=== PATIENT | female | born 1950 | race Caucasian/White ===

== ENCOUNTER → 2023-09-24 08:40 | Outpatient (CLI) | payer MEDICARE, OTHER, SELFPAY ==
--- NOTE | 2023-09-24 08:46 | DI.CT.S_ITS ---
PROCEDURE: CT LE RT WO CON INDICATIONS: RT KNEE PAIN / R/O FRACTURE TECHNIQUE: Noncontrast 1-1.5 mm axial sections acquired from the mid-patella to the proximal tibia, with coronal and sagittal reformats. COMPARISON: [facility], MR, MR KNEE RIGHT WITHOUT CONTRAST, 09/15/2023, 7:23. [facility] [place], CR, XR KNEE 4+ VIEWS RIGHT, 08/25/2023, 9:50. FINDINGS: Image quality: Excellent. Bones: No acute osseous fracture or dislocation. Moderate joint space narrowing is seen at the lateral femorotibial compartment with subchondral sclerosis and small marginal osteophytes. Mild joint space narrowing is seen at the lateral and anterior compartments. Soft tissues: Small joint effusion. Small dystrophic calcification in adjacent to the lateral femoral epicondyle. The articular cartilages, menisci, ligaments and tendons are not well evaluated with CT. The musculature surrounding the knee is normal in bulk. IMPRESSION: 1. No acute osseous abnormality. 2. 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 3. Small joint effusion. Approved by: Thai Mead M.D. on 09/24/2023 at 11:53
== END ==
PROVIDERS: PCP Family Medicine; Referring Provider Orthopaedic Surgery Adult Reconstructive Orthopaedic Surgery; Visit Provider Orthopaedic Surgery Adult Reconstructive Orthopaedic Surgery
DX: M17.11 Unilateral primary osteoarthritis, right knee (principal); M25.561 Pain in right knee; M25.461 Effusion, right knee
CPT/HCPCS: 73700

== ENCOUNTER → 2023-12-10 16:52 | Outpatient (CLI) | payer MEDICARE, OTHER, SELFPAY ==
--- NOTE | 2023-12-10 16:53 | DI.MRI.S_ITS ---
PROCEDURE: MR KNEE RT WO CON INDICATIONS: Mass of right thigh TECHNIQUE: Noncontrast sagittal PD fast spin echo and T2 fast spin echo with fat saturation, sagittal 3-D FLASH with fat saturation; coronal T1 spin echo and PD fast spin echo with fat saturation, and axial PD fast spin echo with fat saturation through the knee. COMPARISON: [facility] [place], CR, XR KNEE 4+ VIEWS RIGHT, 08/25/2023, 9:50. [facility], CT, CT LE RT WO CON, 09/24/2023, 8:52. [facility], MR, MR KNEE RIGHT WITHOUT CONTRAST, 09/15/2023, 7:23. FINDINGS: Image quality: Excellent. Menisci: Medial and lateral meniscal extrusions. There is oblique tear of the posterior horn and body of the lateral meniscus extending to the inferior articular surface. Horizontal tear is seen in the anterior horn of the lateral meniscus. There is horizontal tear of the body of the medial meniscus. The meniscal root ligaments appear intact. Cruciate ligaments: The anterior and posterior cruciate ligaments appear intact. Medial structures: The medial collateral ligament appears intact. The posterior oblique ligament, semimembranosus tendon insertions, oblique popliteal ligament, and meniscocapsular junction appear intact. Visualized portions of the pes anserinus tendons appear normal. No abnormal bursal fluid. Lateral structures: The lateral collateral ligament, long and short heads of the biceps femoris tendon appear intact. The popliteus tendon appears normal. Iliotibial band appears normal. Anterior structures: The quadriceps and patellar tendons appear intact. Mild quadriceps tendinitis and patellar tendinitis. Patellar alignment is normal. No femoral trochlear dysplasia or ventral trochlear prominence. No edema in the infrapatellar fat pad. Bones and cartilage: No bone marrow contusions or fractures. Moderate tricompartmental cartilage thinning and fibrillation. Joint space: There is moderate knee joint effusion. There is a small Stout's cyst. Normal appearing synovial plicae are incidentally noted. IMPRESSION: 1. The exam was request by with and without contrast. The patient could not tolerate completion of imaging. Only noncontrast enhanced images were acquired. 2. Medial and lateral meniscal extrusions and meniscal tears as described. 3. Moderate tricompartmental osteoarthritic changes with cartilage thinning and fibrillation. 4. Mild quadriceps tendinitis and patellar tendinitis. 5. Moderate knee joint effusion. 6. A small Stout's cyst. Dictated by: Kristopher Medrano M.D. on 12/11/2023 at 9:25 Approved by: Kristopher Medrano M.D. on 12/11/2023 at 9:37
== END ==
PROVIDERS: PCP Family Medicine; Referring Provider Orthopaedic Surgery Adult Reconstructive Orthopaedic Surgery; Visit Provider Orthopaedic Surgery Adult Reconstructive Orthopaedic Surgery
DX: S83.241A Other tear of medial meniscus, current injury, right knee, initial encounter (principal); S83.281A Other tear of lateral meniscus, current injury, right knee, initial encounter; M76.51 Patellar tendinitis, right knee; M25.461 Effusion, right knee
CPT/HCPCS: 73721

== ENCOUNTER → 2023-12-11 16:25 | Outpatient (CLI) | payer MEDICARE, OTHER, SELFPAY ==
--- NOTE | 2023-12-11 16:26 | DI.MRI.S_ITS ---
PROCEDURE: MR KNEE RT W CON INDICATIONS: MASS OF RIGHT THIGH TECHNIQUE: Axial, coronal and sagittal T1 fat sat sequences of right knee were obtained after IV gadolinium contrast infusion. COMPARISON: [facility], CT, CT LE RT WO CON, 09/24/2023, 8:52. [facility], MR, MR KNEE RT WO CON, 12/10/2023, 17:17. FINDINGS: Image quality: Excellent. 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 No abnormal intraosseous enhancement. No fracture or dislocation. No suspicious bony lesions. Soft tissues: No enhancing soft tissue mass is seen. No discrete drainable fluid collection. Tiny popliteal cyst is seen. IMPRESSION: 1. Please refer to previous MRI of right knee for detailed evaluation of internal derangement. 2. No area of abnormal intraosseous enhancement. No suspicious intraosseous lesion. 3. No enhancing soft tissue mass or drainable fluid collection is seen in right knee. Dictated by: Nelson Ryan M.D. on 12/13/2023 at 22:30 Approved by: Nelson Ryan M.D. on 12/13/2023 at 22:35
== END ==
PROVIDERS: PCP Family Medicine; Referring Provider Orthopaedic Surgery Adult Reconstructive Orthopaedic Surgery; Visit Provider Orthopaedic Surgery Adult Reconstructive Orthopaedic Surgery
DX: M17.11 Unilateral primary osteoarthritis, right knee (principal); R22.41 Localized swelling, mass and lump, right lower limb
CPT/HCPCS: 73722; A9579